=== PATIENT | female | born 2000 | race African-American/Black ===

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

== ENCOUNTER 2024-02-11 05:42 | Emergency (ER) | payer MEDICAID ==
[~2024-02-11] VITALS: Ht 160 cm; Wt 56.0 kg
[~2024-02-11 05:42] MED LIST changes: +ONDA4TAB5 MT
[2024-02-11 05:46] VITALS: O2SAT 99
[2024-02-11 06:00] VITALS: TEMP 98.4
[2024-02-11] MEDS: MORPHINE SULFATE 4 MG/ML INJ (FOR IV/IM USE) IV ONE (06:10)
[2024-02-11] MEDS ORDERED: TOPUD PO (07:31)
[2024-02-11 07:53] VITALS: BP 151/85; PULSE 91; RESP 17
== END 2024-02-11 07:45 | disposition home or self-care (01) ==
LOC: ER 05:42
DX: M25.512 Pain in left shoulder (principal)
CPT/HCPCS: 99283; 96374; 73030; J2270

== ENCOUNTER 2024-02-16 02:49 | Emergency (ER) | payer MEDICAID ==
[~2024-02-16] VITALS: Ht 160 cm; Wt 55.3 kg
[~2024-02-16 02:49] MED LIST changes: +TOPUD PO
[2024-02-16 03:24] VITALS: O2SAT 98
[2024-02-16] MEDS: ACETAMINOPHEN 500MG TABLET PO NR (05:12)
[2024-02-16] MEDS ORDERED: ACETAMINOPHEN 500MG TABLET PO ONE (05:15)
[2024-02-16 09:52] VITALS: BP 132/82; PULSE 67; RESP 16; TEMP 98
== END 2024-02-16 09:53 | disposition home or self-care (01) ==
LOC: ER 03:24
DX: S80.11XA Contusion of right lower leg, initial encounter (principal); S80.811A Abrasion, right lower leg, initial encounter
CPT/HCPCS: 73610; 99283; Z7610

== ENCOUNTER 2025-04-08 01:16 | Emergency (ER) | payer MEDICAID ==
[~2025-04-08] VITALS: Ht 160 cm; Wt 57.0 kg
[2025-04-08 01:35] VITALS: O2SAT 100
[2025-04-08] MEDS: MORPHINE SULFATE 4 MG/ML INJ (FOR IV/IM USE) IV ONE (02:39)
[2025-04-08] MEDS: ACETAMINOPHEN 500MG TABLET PO ONE (02:40)
[2025-04-08] MEDS: ONDANSETRON HCL 4MG/2ML INJ IV ONE (02:40)
[2025-04-08] MEDS: SODIUM CHLORIDE 0.9% 1,000 ML IV ONE (02:40)
[2025-04-08 03:04] LABS: BASOPHILS % 0.1 % (0.0-2.0); EOSINOPHILS % 0.8 % (0.0-5.0); HEMATOCRIT. 38.2 % (36.0-48.0); HEMOGLOBIN. 12.5 g/dL (12.0-16.0); LYMPHOCYTES % 26.5 % (20.0-50.0); MEAN PLATELET VOLUME 9.0 fl (7.4-10.4); MONOCYTES % 9.7 % (2.0-8.0); NEUTROPHILS % 62.9 % (40.0-76.0); PLATELET 207 x1000/uL (130-400); RED BLOOD CELL COUNT 4.53 mill/uL (4.2-5.4); RED CELL DISTRIBUTION WIDTH 14.6 % (11.6-14.6)
[2025-04-08 03:21] LABS: HCG SCREEN NEGATIVE
[2025-04-08 03:25] LABS: CREATININE 0.8 mg/dL (0.6-1.0); ETHANOL BLOOD < 10 mg/dL (<10); UREA NITROGEN BLOOD 13 mg/dL (9-23)
[2025-04-08 03:27] LABS: ASPARTATE AMINOTRANSFERASE 58 IU/L (<34); BILIRUBIN DIRECT 0.6 mg/dL (<=3.0); BILIRUBIN TOTAL 2.0 mg/dL (0.1-1.0); PROTEIN TOTAL 7.2 g/dL (6.0-8.3)
[2025-04-08] MEDS ORDERED: BACL-141 MT (06:31)
[2025-04-08] MEDS ORDERED: IBUP-2029 MT (06:31)
[2025-04-08 06:37] LABS: CLARITY URINE CLEAR (CLEAR); COLOR URINE DARK YELLOW (YELLOW); GLUCOSE URINE NEGATIVE (NEGATIVE); KETONES URINE 2+ (NEGATIVE); LEUKOCYTE ESTERASE URINE NEGATIVE (NEGATIVE); NITRITE URINE NEGATIVE (NEGATIVE); OCCULT BLOOD URINE NEGATIVE (NEGATIVE); PH URINE 6.0 (4.5-8.0); PROTEIN URINE 1+ (NEGATIVE); SPECIFIC GRAVITY URINE 1.071 (1.005-1.030); UROBILINOGEN URINE 1.0 E.U./dL (0.2-1.0)
[2025-04-08 06:43] VITALS: TEMP 36.6; O2SAT 100
[2025-04-08 06:44] VITALS: BP 128/78; PULSE 63; RESP 14
[2025-04-08] MEDS: KETOROLAC 15MG/ML VIAL IV ONE (06:44)
[2025-04-08] MEDS ORDERED: IOHEXOL-300 100 ML BOTTLE ONE (07:00)
[2025-04-08 07:07] LABS: *AMPHETAMINES SCREEN URINE NEGATIVE (NEGATIVE)
[2025-04-08 07:08] LABS: *BARBITURATES SCREEN URINE NEGATIVE (NEGATIVE); *BENZODIAZEPINES SCREEN URINE NEGATIVE (NEGATIVE); *COCAINE SCREEN URINE NEGATIVE (NEGATIVE); CANNABINOID URINE SCREEN PRESUMPTIVE POSITIVE (NEGATIVE); ECSTASY MDMA SCREEN URINE NEGATIVE (NEGATIVE); METHADONE URINE SCREEN NEGATIVE (NEGATIVE); OPIATES URINE SCREEN PRESUMPTIVE POSITIVE (NEGATIVE); PHENCYCLIDINE URINE SCREEN NEGATIVE (NEGATIVE)
[2025-04-08 07:12] LABS: SQUAMOUS EPITHELIAL CELL URINE 1+ /lpf (RARE/1+)
[2025-04-08 07:14] LABS: RBC URINE 0-2 /hpf (0-2)
[2025-04-08 07:16] LABS: BACTERIA URINE NONE SEEN
== END 2025-04-08 06:55 | disposition home or self-care (01) ==
LOC: ER 01:52
DX: R55 Syncope and collapse (principal); R51.9 Headache, unspecified; Z00.00 Encounter for general adult medical examination without abnormal findings; Z79.899 Other long term (current) drug therapy; Y04.0XXA Assault by unarmed brawl or fight, initial encounter; Y93.89 Activity, other specified; Y92.89 Other specified places as the place of occurrence of the external cause; Y99.8 Other external cause status
CPT/HCPCS: 80076; 80305; 80048; 81003; 80320; 84703; 83690; 85025; 36415; 73080; 73130; 73590; 70450; 72125; 71250; 74177; 96361; 96374; 96375; 99285; Q9967; J1885; J2405; J2270; J7030; Z7610 ×3; A4606; G0480